=== PATIENT | female | born 1950 | race Caucasian/White ===

== ENCOUNTER 2019-07-17 05:52 | Inpatient (IN) | payer MEDICARE ==
[~2019-07-17 05:52] MED LIST: Buffered Lidocaine 1% SYRIN* 1 ML/SYRINGE INTRADERM ONE; Tranexamic Acid 1,000 MG in NS 0.9% 50 ML* (outpatient use) IV SCH; Vancomycin(*) 1,000 MG in NS 0.9% 250 ML* 250 ML IVPB SCH
--- OUTSIDE RECORDS SUMMARY | 2019-07-17 05:55 | XMS REPORT | Continuity of Care Document ---
:1950 External Reference #:[id number] Author Name Rosalia Krishna M.D. (transmitted by agent of provider Le Mendoza) Address [address] [place] [address] Care Team Providers Name Role Phone Brooke Castillo MD - Internal Medicine Care Team Information Radioisotope Technologist Problems Active Problems Provider Date Arthritis RYAN Perdomo Onset: 04/09/2015 Localized, primary osteoarthritis Rosalia Krishna M.D. Onset: 04/11/2019 Social History Type Date Description Comments Sex Unknown ETOH Use Occasionally consumes alcohol Tobacco Use Start: Unknown End: Patient is a former smoker Unknown Smoking Status Reviewed: 07/06/19 Patient is a former smoker Exercise Type/Frequency Exercises sporadically Allergies, Adverse Reactions, Alerts Active Allergies Reaction Severity Comments Date Penicillin And Related Drugs 11/06/2014 Ampicillin 04/11/2019 Clindamycin 04/11/2019 Multiple Antibiotics Patient Cannot 04/11/2019 Recall Medications Active Medications SIG Qnty Indications Ordering Date Provider Toviaz 1 by mouth every 90tabs Rahel 11/06/2014 4mg Tablets ER 24HR day Rui Iyer Hydrochlorothiazide 1 by mouth every Unknown 25mg Tablets day Lipitor 20mg Unknown Singulair 1 by mouth every Unknown 10mg Tablets day Advair Diskus 1 inhalation Unknown 100-50mcg/Dose twice daily Aerosol Oxycodone HCL 1-2 four times a Unknown 5mg Capsules day as needed Lamictal take 1 by mouth Unknown 200mg Tablets twice a day Cymbalta Unknown 60mg Caps DR Morris Trazodone HCL Unknown 100mg Klor-Con M20 1 by mouth every Unknown 20Meq Tablets ER day Morphine Sulfate ER 1 by mouth twice Unknown 60mg Caps ER a day 24HR Medications Administered in Office Medication SIG Qnty Indications Ordering Provider Date Celestone 3 mg and 3mg Rahel Iyer, 11/06/2014 Injection M.DRadha Immunizations Description No Information Available Vital Signs Date Vital Result Comment 07/06/2019 9:43am Height 65 inches 5'5" Weight 166.00 lb Heart Rate 80 /min BP Systolic 130 mmHg BP Diastolic 78 mmHg Respiratory Rate 18 /min Body Temperature 96.9 F Pain Level 4 BMI (Body Mass Index) 27.6 kg/m2 04/11/2019 11:28am Height 65 inches 5'5" Weight 160.00 lb BP Systolic 132 mmHg BP Diastolic 86 mmHg Body Temperature 96.9 F BMI (Body Mass Index) 26.6 kg/m2 Results Description No Information Available Procedures Description No Information Available Medical Devices Description No Information Available Encounters Type Date Location Provider Dx Diagnosis Office Visit 04/11/2019 [facility] Rosalia Krishna, M25.561 Pain in right 11:00a at [place] [facility] knee M25.461 Effusion, right knee M17.11 Unilateral primary osteoarthritis, right knee Assessments Date Code Description Provider 04/11/2019 M25.561 Pain in right knee Rosalia Krishna M.D. 04/11/2019 M25.461 Effusion, right knee Rosalia Krishna M.D. 04/11/2019 M17.11 Unilateral primary osteoarthritis, right knee Rosalia Krishna M.D. Plan of Treatment Future Appointment(s):07/30/2019 10:45 am - Rosalia Krishna M.D. at [facility]07/17/2019 12:00 pm - Shay Alva PA-C at [facility]07/17/2019 12:00 pm [facility] 12:00 pm - Rosalia Krishna M.D. at [facility] Functional Status Description No Information Available Mental Status Description No Information Available Referrals Description No Information Available
[2019-07-17] MEDS ORDERED: Levalbuterol 0.63MG/3ML NEB* UNIT OF USE INH ONE ×2 (06:00→06:56)
[2019-07-17] MEDS ORDERED: Dexamethasone IV* 4 MG/ML 1 ML (4 MG) IV SLOW PU ONE (06:00)
[2019-07-17] MEDS ORDERED: Lactated Ringers 1000 ML Bag* 1,000 ML IV SCH (06:00)
[2019-07-17] MEDS ORDERED: Dexamethasone IV* 4 MG/ML 1 ML (4 MG) ONE (06:56)
[2019-07-17] MEDS ORDERED: ROPIVACAINE 5 MG/ML 30 ML BTL (0.5%) ONE ×2 (07:17→07:32)
[2019-07-17] MEDS ORDERED: Lidocaine 2% PF * 5 ML VIAL ONE (07:30)
[2019-07-17] MEDS ORDERED: Ondansetron INJ* 2 MG/ML VIAL ONE (07:30)
[2019-07-17] MEDS ORDERED: Phenylephrine 40 MCG/ML SYRINGE ONE (07:30)
[2019-07-17] MEDS ORDERED: Propofol* 10 MG/ML 20 ML BTL ONE (07:30)
[2019-07-17] MEDS ORDERED: EPHEDrine (Pressors)* 50 MG/ML VIAL ONE (07:30)
[2019-07-17] MEDS ORDERED: fentaNYL* 50 MCG/ML 5 ML VIAL (250 MCG VIAL) ONE (07:33)
[2019-07-17] MEDS ORDERED: fentaNYL* 50 MCG/ML 2 ML VIAL (100 MCG VIAL) ONE ×5 (07:33→11:37)
[2019-07-17] MEDS ORDERED: Midazolam* 1 MG/ML 5 ML VIAL (5 MG) ONE (07:33)
[2019-07-17] MEDS ORDERED: KETAMINE HCL* 50 MG/ML 10 ML VIAL ONE (07:34)
[2019-07-17] MEDS ORDERED: Atracurium* 10 MG/ML 10 ML VIAL ONE (07:34)
[2019-07-17] MEDS ORDERED: Naloxone* 0.4 MG/ML 1 ML VIAL IV PRN (09:29)
[2019-07-17] MEDS ORDERED: Ondansetron INJ* 2 MG/ML VIAL IV PRN ×2 (09:29→10:55)
[2019-07-17] MEDS ORDERED: DiMENhydriNATE IV* 50 MG/ML VIAL IV PUSH PRN (09:29)
[2019-07-17] MEDS ORDERED: Phenylephrine 10 MG/ML VIAL* 1 ML VIAL ONE (10:04)
[2019-07-17] MEDS: HYDROmorphone INJ1* 1 MG/ML SYRINGE IV PRN ×8 (10:53→11:27)
[2019-07-17] MEDS ORDERED: HYDROmorphone INJ1* 1 MG/ML SYRINGE ONE ×2 (10:53→11:03)
[2019-07-17] MEDS ORDERED: diPHENhydraMINE PO* 25 MG PO PRN (10:55)
[2019-07-17] MEDS ORDERED: Ondansetron ODT TAB* 4 MG PO PRN (10:55)
[2019-07-17] MEDS ORDERED: Magnesium Hydroxide LIQ* 30 ML UDC PO PRN (10:55)
[2019-07-17] MEDS ORDERED: diPHENhydraMINE IV* 50 MG/ML 1 ml VIAL (BENADRYL) IV PRN (10:55)
[2019-07-17] MEDS ORDERED: Ondansetron TAB* 4 MG PO PRN (10:58)
[2019-07-17] MEDS ORDERED: Albuterol HFA INHALER* 8 gm MDI INH PRN (11:01)
[2019-07-17] MEDS: fentaNYL* 50 MCG/ML 2 ML VIAL (100 MCG VIAL) IV PRN ×5 (11:29→11:38)
[2019-07-17] MEDS ORDERED: DiMENhydriNATE IV* 50 MG/ML VIAL ONE (11:45)
--- NOTE | 2019-07-17 11:45 | PN ---
Progress Note - Progress Note Date of Service: 07/17/19 Note: patient resting comfortably in recovery. dressing c/d/i; able to dorsi flex/ plantar flex, 2+ DP pulse and intact sensation
[2019-07-17] MEDS ORDERED: oxyCODONE/Acetamin 5/325 MG* TAB ONE (13:05)
[2019-07-17] MEDS: oxyCODONE/Acetamin 5/325 MG* TAB PO PRN ×2 (13:07→22:38)
[2019-07-17] MEDS: Lactated Ringers 1000 ML Bag* 1,000 ML IV SCH (13:32)
[2019-07-17] MEDS: Acetaminophen TAB* 325 MG PO SCH ×2 (13:33→22:51)
[2019-07-17] MEDS: Cyclobenzaprine TAB* 10 MG PO PRN (16:34)
[2019-07-17] MEDS: Potassium Chlor TAB* 20 MEQ TAB.ER PO SCH (16:34)
[2019-07-17] MEDS: oxyCODONE TAB* 5 MG TAB PO PRN ×2 (16:34→20:29)
[2019-07-17] MEDS: Morphine INJ* 4 MG/ML 1 ML SYRINGE (NEW SYRINGE VERSION) IV PRN ×2 (17:31→21:45)
--- NOTE | 2019-07-17 19:51 | OP ---
Operative Report - Blank - Operative Report Date of Operation: 07/17/19 Note: JOHN DOMINGO 1950 Date of Surgery: 07/17/19 Rosalia Krishna MD Stucco Laborer: Mik EMERSON did help throughout the procedure with preparation of the knee, wound retraction, manipulation of the knee, and wound closure. Anesthesiologist: Mercedes Sanchez MD Anesthesia Type: Spinal Preoperative Diagnosis: Right severe degenerative osteoarthritis of the knee Postoperative Diagnosis: As above Procedure Performed: Right Total Knee Arthroplasty Tourniquet time: 46 minutes Complications: None Specimen: Bone and cartilage from the right knee joint sent to pathology. Hardware Used: Cemented Mancia and Nephew total knee hardware was used - For the femur a size 5 right legion posterior stabilized femoral component, for the tibia a size 4 right tre II tibial baseplate, for the insert a size 11mm 3- 4 posterior stabilized articular polyethylene insert, and for the patella a size 35 3-peg all poly patella. Brief History/Indication: JOHN DOMINGO was known in clinic and had a history of severe right knee pain and swelling. She failed conservative treatment with anti-inflammatories, pain pills, intra-articular injections and physical therapy. She elected to undergo right total knee arthroplasty due to continued pain and decreased quality of life. Radiographs showed severe end stage osteoarthritis of the knee with bone on bone contact. Informed consent was obtained from the patient. She understood the risks of surgery included but were not limited to: bleeding, infection, damage to nearby structures, intraoperative fracture, nerve palsy, failure of the hardware, early loosening, knee stiffness or loss of motion, anesthesia complications, stroke, heart attack , blood clot and . She wished to proceed. Intra-Operative Findings: Intraoperatively the patient was noted to have severe loss of cartilage in all 3 compartments of the knee. Description of the Procedure: JOHN DOMINGO was identified in the preanesthesia unit. Her right knee was marked as the correct operative side. Informed consent was signed and placed in the chart. The patient was taken to the operating room and placed under anesthesia without complication. A olguin catheter was placed. A tourniquet was placed on the right thigh. The right lower extremity was prepped and draped in the usual sterile fashion. Preoperative time-out was made to correctly identify the patient, side and site. Appropriate intraoperative antibiotics were given within one hour of incision. Tourniquet was inflated. A midline incision was made and carried sharply down to the extensor mechanism. A new 10 blade was used to make a standard medial parapatellar arthrotomy. The patella was subluxed laterally. Electrocautery was used to dissect soft tissue off the superomedial tibia to the midsagittal plane. The knee was flexed up. The anterior horn of the lateral meniscus and the ACL were sharply incised. A drill was used to enter the distal femur. The intramedullary distal femoral cutting guide was pinned on the distal femur. The oscillating saw was used to make the distal femoral cut. The external rotation guide was pinned on the distal femur and the distal femur was sized to a size 5. The size 5 multi-cutting jig was pinned on the distal femur. The oscillating saw was used to make the appropriate 4 chamfer cuts. Next the PCL was completely released. The extramedullary tibial cutting guide was pinned on the proximal tibia and the oscillating saw was used to make the proximal tibial cut perpendicular to the mechanical axis of the tibia. The bone was carefully removed. The knee was brought out into full extension. The spacer block was placed and had excellent fit with the knee in full extension. The medial and lateral ligaments were well balanced. The flexion and extension gaps were well balanced. The knee was flexed up. Lamina shuttle truck driver was placed both medially and laterally. Any remaining meniscus was removed with electrocautery. Curved osteotome was used to remove any posterior osteophytes. The tibial tray and drop michael were placed and confirmed a satisfactory tibial cut. The size 5 right femoral trial was impacted onto the distal femur. This trial had excellent fit and stability. The box for the posterior stabilized implant was prepared using a box cut osteotome and a reamer. Next a tibial tray trial and 9 mm insert trial was placed. The knee was taken through a range of motion and had full extension to 130 degrees of flexion. Patellofemoral tracking was satisfactory. The patella was inverted and sized to a size 35. Three peg holes were drilled through the size 35 drill guide. The trial patella was placed and the knee was taken through a range of motion. There was satisfactory patellofemoral tracking. All trials were removed. The tibia was subluxed anteriorly and sized to a size 4. The proximal tibial was prepared with a size 4 keel punch. All bony cut surfaces were irrigated with sterile saline and dried. Final implants were cemented into place starting with the tibia, followed by the femur, and last the patella. A 9 mm insert trial was placed and the knee was brought into full extension. Tourniquet was turned down and the knee was copiously irrigated with sterile saline. Electrocautery was used to obtain meticulous hemostasis. Once the cement had fully cured, the insert trial was removed. Any excess cement was removed from around the hardware and capsule. Final insert chosen was a 11 mm posterior stabilized Tre II articular insert size 3-4. Stability of the insert was checked and noted to be stable. The extensor mechanism was closed using number 1 vicryls. The rest of the incision was closed in a layered fashion using 0 and 2-0 vicryls. The skin was closed using 3-0 nylon suture. Sterile xeroform, 4x4s and webril were used to cover the incision. Royal wrap and cold pack were used to cover the dressings. The patients anesthesia was reversed without difficulty. She was taken to the PACU in stable condition. Intended weight-bearing will be as tolerated.
[2019-07-17] MEDS: Mometasone/Formoter 100/5 MDI INH SCH (20:12)
[2019-07-17] MEDS: Vancomycin(*) 1,000 MG in NS 0.9% 250 ML* 250 ML IVPB SCH (20:20)
[2019-07-17] MEDS: traMADol TAB* 50 MG PO PRN (20:28)
[2019-07-17] MEDS: Docusate CAP* 100 MG PO SCH (20:28)
[2019-07-17] MEDS: Magnesium Hydroxide LIQ* 30 ML UDC PO SCH (20:29)
[2019-07-17] MEDS ORDERED: traZODone TAB* 100 MG PO SCH (21:00)
[2019-07-18] MEDS: Lactated Ringers 1000 ML Bag* 1,000 ML IV SCH (01:13)
[2019-07-18] MEDS: oxyCODONE TAB* 5 MG TAB PO PRN ×4 (02:26→17:05)
[2019-07-18] MEDS: Cyclobenzaprine TAB* 10 MG PO PRN ×3 (02:27→14:38)
[2019-07-18] MEDS: oxyCODONE/Acetamin 5/325 MG* TAB PO PRN ×3 (04:40→14:38)
[2019-07-18] MEDS: Acetaminophen TAB* 325 MG PO SCH ×2 (05:46→12:59)
[2019-07-18 05:52] LABS: Hematocrit 33 % (35-47); Hemoglobin 11.2 g/dL (12.0-16.0); Mean Platelet Volume 7.1 fL (7.4-10.4); Platelet Count 192 10^3/uL (150-450)
[2019-07-18] MEDS: traMADol TAB* 50 MG PO PRN ×3 (05:53→18:01)
[2019-07-18 06:07] LABS: BUN/Creatinine Ratio 12.5 (8-20); Calcium 8.5 mg/dL (8.6-10.3); EGFR African American 77.3 (>60); EGFR Non-African American 63.9 (>60); Potassium 3.9 mmol/L (3.5-5.0)
[2019-07-18] MEDS: Vancomycin(*) 1,000 MG in NS 0.9% 250 ML* 250 ML IVPB SCH (07:54)
[2019-07-18] MEDS ORDERED: Atorvastatin* 20 MG TAB PO SCH (09:00)
[2019-07-18] MEDS ORDERED: DULoxetine DR CAP* 60 MG CAP.DR PO SCH (09:00)
[2019-07-18] MEDS ORDERED: LAMOTRIGINE 200 MG PO SCH (09:00)
[2019-07-18] MEDS ORDERED: FESOTERODINE 4 MG PO SCH (09:00)
[2019-07-18] MEDS ORDERED: Morphine TAB Extended Release (*) 30 MG TAB.ER PO SCH (09:00)
[2019-07-18] MEDS ORDERED: Apixaban* 2.5 MG TAB PO SCH (09:00)
[2019-07-18] MEDS ORDERED: Vitamin THERAPEUTIC TAB PO SCH (09:00)
--- NOTE | 2019-07-18 09:08 | PN ---
Progress Note - Progress Note Date of Service: 07/18/19 SOAP: Subjective: []Pt seen at bedside. She feels well, her pain is well controlled localized mostly to muscle spasm of the thigh. Denies CP, SOB, dizziness or nausea. Takes narcotics at home for chronic back pain and does not want additional narcotic RX for acute pain of surgery,would be comfortable going home with muscle relaxer. Objective: []Gen: Appears well, NAD RLE: Right knee dressing CDI, thigh soft, DF/PF intact, DP2+, sensation intact to light touch distally. Calves supple and nontender without erythema, edema or palpable cords Assessment: []POD 1 sp Right total knee replacement Plan: []WBAT PT Eliquis 2.5 mg po BID x 30 days post op home pain meds + cyclobenzaprine If PT goals met anticipate DC home this afternoon with outpt services Vital Signs Temp 99.2 F 07/18/19 08:06 Pulse 81 07/18/19 08:06 Resp 18 07/18/19 08:40 BP 142/72 07/18/19 08:06 Pulse Ox 92 07/18/19 08:06 Intake & Output 07/17/19 07/18/19 07/18/19 18:59 06:59 18:59 Intake Total 1100 2230 240 Output Total 450 2400 250 Balance 650 -170 -10 Weight 167 lb Intake: IV Fluids 1100 1250 ABX - VANCOMYCIN 278 LR 1100 972 Oral 0 980 240 Output: Urine 250 Vences 450 2400 Other: Estimated Void Large Laboratory Last Values Hgb 11.2 g/dL (12.0-16.0) L 07/18/19 05:12 Hct 33 % (35-47) L 07/18/19 05:12 Plt Count 192 10^3/uL (150-450) 07/18/19 05:12 MPV 7.1 fL (7.4-10.4) L 07/18/19 05:12 Sodium 139 mmol/L (135-145) 07/18/19 05:12 Potassium 3.9 mmol/L (3.5-5.0) 07/18/19 05:12 Chloride 102 mmol/L (101-111) 07/18/19 05:12 Carbon Dioxide 33 mmol/L (22-32) H 07/18/19 05:12 Anion Gap 4 mmol/L (2-11) 07/18/19 05:12 BUN 11 mg/dL (6-24) 07/18/19 05:12 Creatinine 0.88 mg/dL (0.51-0.95) 07/18/19 05:12 Est GFR ( Amer) 77.3 (>60) 07/18/19 05:12 Est GFR (Non-Af Amer) 63.9 (>60) 07/18/19 05:12 BUN/Creatinine Ratio 12.5 (8-20) 07/18/19 05:12 Glucose 142 mg/dL (70-100) H 07/18/19 05:12 Calcium 8.5 mg/dL (8.6-10.3) L 07/18/19 05:12
--- NOTE | 2019-07-18 09:20 | DS ---
Orthopedic Discharge Summary - Discharge Summary Date of Admission:07/17/19 Date of Discharge: 07/18/19 Date of Surgery: 07/17/19 Attending Orthopedic Provider: Dr Krishna Pre-operative Diagnosis: Right knee osteoarthritis Operative Procedure: Right total knee replacement Disposition of Patient: home with outpatient services Condition of Patient: stable History: JOHN DOMINGO is a 69 year old F with years of increasingly severe right knee pain. Patient has failed conservative management and has elected to undergo a right total knee replacement Hospital Course: JOHN was admitted to [facility] on 07/17/19. Patient underwent a right total knee replacement without complication followed by a brief recovery in PACU and transfer to the Short Stay Surgical Unit in stable condition. Dr Castillo, physical therapy also participated in this patients care. Post-op day 1: patient was alert and in no acute distress. Dressing was clean, dry and intact. Operative extremity dorsiflexion and plantarflexion intact, sensation intact to light touch distally, DP2+. Prior to discharge: dressing was changed, incision was clean, dry and intact. Patient was deemed to be medically and orthopedically stable for discharge. Dopplar study of the RLE was negative for DVT. Physical therapy goals were met. Home Medications Medication Instructions Recorded Confirmed Type Atorvastatin* [Lipitor 40 MG*] 20 mg PO QAM 11/07/12 07/17/[address] CRUZ* [Cymbalta CAP*] 90 mg PO QAM 11/07/12 07/17/19 History Fluticasone-Salmeterol 100-50* 1 puff INH BID 11/07/12 07/17/19 History [Advair Diskus 100-50*] Hydrochlorothiazide TAB* 25 mg PO EVERY OTHER DAY 11/07/12 07/17/19 History [Hydrodiuril TAB*] Montelukast Sodium TAB* [Singulair 10 mg PO BEDTIME 11/07/12 07/17/19 History 10 MG TAB*] Potassium Chlor TAB* [Klor Con ER 20 meq PO QPM 11/07/12 07/17/19 History TAB 10 MEQ*] lamoTRIgine TAB(*) [Lamictal 200 mg PO QAM 11/07/12 07/17/19 History TAB(*)] oxyCODONE TAB* [Roxycodone TAB 5 10 mg PO Q4H PRN MDD 12 11/07/12 07/17/19 History mg*] Albuterol HFA INHALER* [Ventolin 1 - 2 puff INH Q4H PRN 06/05/15 07/17/19 History HFA Inhaler*] Fesoterodine (NF) [Toviaz (NF)] 4 mg PO QAM 06/05/15 07/17/19 History Acetaminophen [Tylenol Extra 1,000 mg PO Q12H PRN 07/10/19 07/17/19 History Strength] Cholecalciferol (Vitamin D3) 1,000 unit PO QAM 07/10/19 07/17/19 History [Vitamin D3] Cyanocobalamin INJ * [Vitamin B12 1,000 mcg IM MONTHLY 07/10/19 07/17/19 History INJ *] Fluticasone NASAL SPRAY 50MCG* 1 spray BOTH NARES QAM 07/10/19 07/17/19 History [Flonase NASAL SPRAY 50MCG*] Medical Marijuana 1 drop PO QAM 07/10/19 07/17/19 History Morphine Sulfate [Morphine Sulfate 60 mg PO QAM 07/10/19 07/17/19 History ER] Senna TAB 8.6 mg* [Senokot 8.6 mg 1 tab PO DAILY PRN 07/10/19 07/17/19 History TAB*] traZODone TAB* [Desyrel TAB*] 200 mg PO BEDTIME 07/10/19 07/17/19 History Acetaminophen TAB* [Tylenol TAB*] 975 mg PO Q8HR tab 07/18/19 Rx Apixaban* [Eliquis*] 2.5 mg PO BID #60 tab 07/18/19 Rx Cyclobenzaprine TAB* [Flexeril 10 10 mg PO Q6H PRN #30 tab MDD 3 07/18/19 Rx MG TAB*] Docusate CAP* [Colace Cap*] 100 mg PO BID PRN #90 cap 07/18/19 Rx Discharge Instructions following Orthopedic Surgery: Activity: * Weight Bearing as tolerated * Continue physical therapy and occupational therapy exercises as shown * Outpatient PT Wound care: * OK to shower on post-op day 3, no bathing, swimming, or submerging wound. * Use gentle soap, pat dry. Cover with gauze, ALLEN wrap or tape. Call Orthopedic office for: * Increased drainage * Redness * Increased pain * Fever Go to ER with shortness of breath or chest pain. Diet: * Regular diet * Increase fluids and fiber to prevent constipation. * Continue to use stool softeners, call office if no bowel motion within 48 hours. Medications See Home Medication List in your packet for medications that you should take after discharge. DVT Prophylaxis: Increases bleeding tendency Eliquis Dosin.5 mg, 1 tab every 12 hours x 30 days post op Pain Control: Cyclobenzaprine 10 mg by mouth every 8 hours as needed for muscle spasm. Hold for sedation. Continue your home oxycodone and MS contin as prescribed by Dr Castillo. Hold for sedation and wean off as soon as pain allows. No additional narcotics medications prescribed per patient request. Antibiotics are required prior to any dental work. FOLLOW UP: Follow up with [Tomi] Within 10-14 days, call for appointment Please call our office with any questions or concerns ([phone]) RX to [facility]
[2019-07-18] MEDS: Docusate CAP* 100 MG PO SCH (09:57)
[2019-07-18] MEDS: Magnesium Hydroxide LIQ* 30 ML UDC PO SCH (09:57)
[2019-07-18] MEDS: Mometasone/Formoter 100/5 MDI INH SCH (09:57)
[2019-07-18 15:31] VITALS: BP 135/57
[2019-07-18] MEDS: Potassium Chlor TAB* 20 MEQ TAB.ER PO SCH (17:05)
--- NOTE | 2019-07-19 00:13 | PN ---
FOLLOWUP CONSULTATION NOTE: DATE OF ADMISSION: 07/17/19 DATE OF CONSULT: 07/18/19 HISTORY: The patient is one day status post total knee replacement. She says the knee is quite painful. It hurts to get up and move. Nonetheless, she is hoping to go home. She has been taking her usual medication for pain which includes morphine extended release 60 mg daily and oxycodone 10 mg every 4 hours as needed with MDD of 60 mg. PHYSICAL EXAMINATION: Vital Signs: Blood pressure 142/72, pulse 92, respirations 16, temperature 98.2, and O2 sat 92%. She appears uncomfortable, but in no acute distress. She was walking back and forth to the bathroom with a walker while I was in the room. Chest is clear. Heart is regular. Extremities show cooling unit on her knee. LABORATORY DATA: H and H 11.. Chemistries 139, potassium 3.9, chloride 102 , CO2 33, BUN and creatinine 1/0.88, glucose 142, calcium 8.5. IMPRESSION: 1. The patient with pain after knee replacement. I discussed the case with physician mental health assistant, IDANIA Vergara. I recommended increasing her pain medication to cover the pain she has been having postoperative. The patient is anxious to go home today. We discussed having her take extra medication to cover her pain. 2. Her blood pressure is fairly well controlled. She should continue her usual medications. 3. Hyperlipidemia. The patient is to continue on atorvastatin. 4. History of iron-deficiency anemia, she should continue taking iron. 5. DVT prophylaxis. She will be given Apixaban. [id number]/[facility] #: [id number] JIE
[2019-07-19] MEDS ORDERED: Hydrochlorothiazide TAB* 25 MG PO SCH (09:00)
[2019-07-19] MEDS ORDERED: Bisacodyl SUPP* 10 MG SUPP PR PRN (10:55)
== END 2019-07-18 18:40 | disposition home or self-care (01) | DRG 470 ==
LOC: AA 05:52 → SSU 10:55
PROVIDERS: ADMIT Orthopaedic Surgery Adult Reconstructive Orthopaedic Surgery; ATTEND Orthopaedic Surgery Adult Reconstructive Orthopaedic Surgery
PROC: 0SRC069 Replacement of Right Knee Joint with Oxidized Zirconium on Polyethylene Synthetic Substitute, Cemented, Open Approach (ICD-10-PCS; principal; 2019-07-17 08:00)
DX: M17.11 Unilateral primary osteoarthritis, right knee (principal); I10 Essential (primary) hypertension; E78.00 Pure hypercholesterolemia, unspecified; K21.9 Gastro-esophageal reflux disease without esophagitis; M79.7 Fibromyalgia; Z96.611 Presence of right artificial shoulder joint; E78.5 Hyperlipidemia, unspecified; G89.29 Other chronic pain; M54.5 Low back pain; F32.9 Major depressive disorder, single episode, unspecified; G31.84 Mild cognitive impairment of uncertain or unknown etiology; J45.998 Other asthma; M25.761 Osteophyte, right knee; M72.2 Plantar fascial fibromatosis; E53.8 Deficiency of other specified B group vitamins; D50.9 Iron deficiency anemia, unspecified; M25.461 Effusion, right knee; Z88.0 Allergy status to penicillin; Z88.1 Allergy status to other antibiotic agents; Z96.82 Presence of neurostimulator; Z88.8 Allergy status to other drugs, medicaments and biological substances; Z87.891 Personal history of nicotine dependence
CPT/HCPCS: 36415; 80048; 85014; 85018; 85049; 88305; 88311; 94640; A9270-GY; C1776; G8978-GP-CK; G8979-GP-CI; J1100; J1170; J1240; J2250; J2270; J2405; J2704; J2795; J3010; J3370